=== PATIENT | male | born 1970 ===

== ENCOUNTER 2017-03-07 09:01 | Emergency (ER) | payer SELFPAY ==
[2017-03-07 09:26] VITALS: O2SAT 98
[2017-03-07 10:18] LABS: BASO % 0.4 % (0.0-2.0); EOS # 0.1 K/uL (0.0-0.7); EOS % 1.1 % (0.0-4.0); HEMATOCRIT 47.3 % (35.0-51.0); LYMPH # 2.4 K/uL (1.0-4.3); LYMPH % 27.5 % (20.0-40.0); MEAN CELL VOLUME 87.8 fl (80.0-94.0); MEAN CORPUSCULAR HEMOGLOBIN 30.4 pg (27.0-31.0); MEAN CORPUSCULAR HGB CONC 34.6 g/dL (33.0-37.0); MEAN PLATELET VOLUME 9.7 fl (7.2-11.7); MONO # 0.6 K/uL (0.0-0.8); MONO % 7.1 % (0.0-10.0); NEUT # 5.5 K/uL (1.8-7.0); NEUT % 63.9 % (50.0-75.0); NRBC % 0.1 % (0.0-0.0); RED CELL DISTRIBUTION WIDTH 12.9 % (11.5-14.5); WHITE BLOOD COUNT 8.6 K/uL (4.8-10.8)
[2017-03-07 10:30] LABS: ALB/GLOB RATIO 1.5 (1.0-2.1); ALKALINE PHOSPHATASE 58 U/L (38-126); ALT/SGPT 42 U/L (21-72); AST/SGOT 24 U/L (17-59); BILIRUBIN,TOTAL 0.7 mg/dl (0.2-1.3); BLOOD UREA NITROGEN 17 mg/dl (9-20); CALCIUM 9.8 mg/dL (8.4-10.2); CARBON DIOXIDE 31 mmol/L (22-30); CHLORIDE 101 mmol/L (98-107); GFR AFRICAN-AMERICAN > 60; GLUCOSE,RANDOM 98 mg/dL (75-110); POTASSIUM 4.1 MMOL/L (3.6-5.0); SODIUM 143 mmol/l (132-148); TOTAL PROTEIN 7.8 G/DL (6.3-8.2); URIC ACID 7.6 mg/Dl (3.5-8.5)
--- NOTE | 2017-03-07 10:33 | RAD ---
PROCEDURE: Left foot radiographs dated 03/07/2017 HISTORY: left foot pain/swelling COMPARISON: None. FINDINGS: BONES: No evidence of acute displaced fracture nor dislocation. The osseous structures appear intact. There are no obvious cortical destructive changes. Small posterior and plantar calcaneal enthesophytes are present. JOINTS: Joint spaces preserved. No significant osteoarthritis. SOFT TISSUES: Mild diffuse soft tissue swelling nonspecific. OTHER FINDINGS: None. IMPRESSION: No acute fractures. Mild diffuse nonspecific soft tissue swelling.
--- NOTE | 2017-03-07 11:49 | ED PDOC ---
Lower Extremity Pain/Injury Time Seen by Provider: 03/07/17 09:12 Chief Complaint (Nursing): Lower Extremity Problem/Injury History Per: Patient (states that he noticed swelling and pain of the left foot yesterday morning. The pain and swelling worsened over the past 24 hours. He has taken ibuprofen 800mg without relief. He denies injuries, fall, or overexertion) History/Exam Limitations: no limitations Past Medical History Reviewed: Historical Data, Nursing Documentation, Vital Signs Vital Signs: Last Vital Signs Temp 97 F L 03/07/17 09:18 Pulse 64 03/07/17 09:18 Resp 20 03/07/17 09:18 BP 135/88 03/07/17 09:18 Pulse Ox 98 03/07/17 09:18 - Medical History PMH: No Chronic Diseases, HTN - Family History Family History: States: No Known Family Hx - Home Medications Home Medications: Ambulatory Orders Medication Instructions Recorded Naproxen [Naprosyn] 500 mg PO BID PRN #20 tablet 03/07/17 - Allergies Allergies/Adverse Reactions: Allergies Allergy/AdvReac Type Severity Reaction Status Date / Time No Known Allergies Allergy Verified 03/07/17 09:17 Review of Systems ROS Statement: Except As Marked, All Systems Reviewed And Found Negative Constitutional: Negative for: Fever, Chills Skin: Negative for: Rash, Lesions, Bruising Physical Exam - Reviewed Nursing Documentation Reviewed: Yes Vital Signs Reviewed: Yes - Physical Exam Appears: Positive for: Well, Non-toxic, No Acute Distress Head Exam: Positive for: ATRAUMATIC, NORMAL INSPECTION, NORMOCEPHALIC Skin: Positive for: Normal Color, Warm, DRY Eye Exam: Positive for: EOMI, Normal appearance, PERRL ENT: Positive for: Normal ENT Inspection Neck: Positive for: Normal, Painless ROM Cardiovascular/Chest: Positive for: Regular Rate, Rhythm Respiratory: Positive for: CNT, Normal Breath Sounds Gastrointestinal/Abdominal: Positive for: Normal Exam, Bowel Sounds, Soft Back: Positive for: Normal Inspection Extremity: Positive for: Tenderness (of the dorsum of the left foot. pulses intact but faint.) Neurologic/Psych: Positive for: Alert, Oriented - Laboratory Results Result Diagrams: 03/07/17 09:57 03/07/17 09:57 - ECG O2 Sat by Pulse Oximetry: 98 Disposition - Clinical Impression Clinical Impression: Soft tissue swelling - Patient ED Disposition Is Patient to be Admitted: No Doctor Will See Patient In The: Office Counseled Patient/Family Regarding: Diagnosis, Need For Followup, Rx Given - Disposition Referrals: [facility] [Outside] [facility] [Outside] Disposition: Routine/Home Disposition Time: 11:51 Condition: STABLE Prescriptions: Naproxen [Naprosyn] 500 mg PO BID PRN #20 tablet PRN Reason: Pain, Moderate (4-7) Instructions: Muscle Strain (ED) Forms: [facility] (Lao) - POA Present On Arrival: None
[2017-03-07 12:10] VITALS: BP 126/78; PULSE 75; RESP 16; TEMP 97.9
== END 2017-03-07 12:05 | disposition home or self-care (01) ==
LOC: H.ER 09:01
DX: M79.89 Other specified soft tissue disorders (principal)

== ENCOUNTER 2018-03-05 13:58 | Emergency (ER) | payer OTHER ==
[2018-03-05 15:01] LABS: BASO % 0.6 % (0.0-2.0); EOS # 0.1 K/uL (0.0-0.7); EOS % 2.2 % (0.0-4.0); HEMOGLOBIN 15.5 g/dL (12.0-18.0); LYMPH # 2.1 K/uL (1.0-4.3); LYMPH % 36.6 % (20.0-40.0); MEAN CELL VOLUME 87.5 fl (80.0-94.0); MEAN CORPUSCULAR HEMOGLOBIN 30.6 pg (27.0-31.0); MEAN CORPUSCULAR HGB CONC 34.9 g/dL (33.0-37.0); MEAN PLATELET VOLUME 9.7 fl (7.2-11.7); MONO # 0.4 K/uL (0.0-0.8); MONO % 6.4 % (0.0-10.0); NEUT # 3.1 K/uL (1.8-7.0); NEUT % 54.2 % (50.0-75.0); NRBC % 0.2 % (0.0-0.0); RBC 5.06 Mil/uL (4.40-5.90); RED CELL DISTRIBUTION WIDTH 13.1 % (11.5-14.5); WHITE BLOOD COUNT 5.6 K/uL (4.8-10.8)
[2018-03-05 15:08] LABS: URINE BILIRUBIN NEGATIVE (NEGATIVE); URINE BLOOD NEGATIVE (NEGATIVE); URINE CLARITY CLEAR (Clear); URINE COLOR YELLOW (YELLOW); URINE GLUCOSE (UA) NEG (Normal); URINE LEUKOCYTE ESTERASE NEG Leu/uL (Negative); URINE PROTEIN NEGATIVE (NEGATIVE); URINE UROBILINOGEN 0.2-1.0 mg/dL (0.2-1.0)
[2018-03-05 15:20] LABS: BLOOD UREA NITROGEN 18 mg/dl (9-20); CALCIUM 9.6 mg/dL (8.4-10.2); GFR AFRICAN-AMERICAN > 60; GFR NON-AFRICAN AMERICAN > 60
--- NOTE | 2018-03-05 15:27 | ED PDOC ---
HPI: Abdomen Time Seen by Provider: 03/05/18 14:26 Chief Complaint (Nursing): Abdominal Pain History Per: Patient History/Exam Limitations: no limitations Onset/Duration Of Symptoms: Other (2 weeks) Outside of [place] travel?: No Current Symptoms Are (Timing): Still Present Severity: Moderate Pain Scale Rating Of: 4 Location Of Pain/Discomfort: LLQ Quality Of Discomfort: Dull Associated Symptoms: denies: Fever, Chills, Nausea, Vomiting, Diarrhea, Back Pain, Chest Pain, Constipation, Urinary Symptoms Exacerbating Factors: None Alleviating Factors: None Last Bowel Movement: Today Additional History Per: Patient Additional Complaint(s): Patient presenting with Left scrotal pain and LLQ pain for 2 weeks. Pain is intermittent. Denies any swelling. Pain is moderate. Denies any dysuria, hematuria, hematospermia, back pain, fever. PMD none Past Medical History Reviewed: Historical Data, Nursing Documentation, Vital Signs Vital Signs: Last Vital Signs Temp 98.4 F 03/05/18 14:16 Pulse 64 03/05/18 14:16 Resp 18 03/05/18 14:16 BP 146/87 03/05/18 14:16 Pulse Ox 99 03/05/18 17:28 - Medical History PMH: HTN Denies: Chronic Kidney Disease - Surgical History Surgical History: No Surg Hx - Family History Family History: States: No Known Family Hx - Immunization History Hx Tetanus Toxoid Vaccination: No Hx Influenza Vaccination: No Hx Pneumococcal Vaccination: No - Home Medications Home Medications: Ambulatory Orders Medication Instructions Recorded Atenolol 50 mg PO 11/17/13 Losartan 50 mg PO 11/17/13 amLODIPine 5 mg PO 11/17/13 Naproxen [Naprosyn] 500 mg PO BID PRN #20 tablet 03/07/17 - Allergies Allergies/Adverse Reactions: Allergies Allergy/AdvReac Type Severity Reaction Status Date / Time No Known Allergies Allergy Verified 03/05/18 14:15 Review of Systems ROS Statement: Except As Marked, All Systems Reviewed And Found Negative Physical Exam - Reviewed Nursing Documentation Reviewed: Yes Vital Signs Reviewed: Yes - Physical Exam Appears: Positive for: Well, Non-toxic, No Acute Distress Head Exam: Positive for: ATRAUMATIC, NORMAL INSPECTION Skin: Positive for: Normal Color, Warm, Dry Eye Exam: Positive for: EOMI ENT: Positive for: Normal ENT Inspection Neck: Positive for: Normal, Painless ROM Cardiovascular/Chest: Positive for: Regular Rate, Rhythm Respiratory: Positive for: Normal Breath Sounds. Negative for: Respiratory Distress Gastrointestinal/Abdominal: Positive for: Soft, Tenderness (LLQ ) Male Genital Exam: Positive for: normal genitalia, no hernia, epididymal tenderness. Negative for: erythema, inguinal tenderness, testicular tenderness (R), testicular tenderness (L) Back: Negative for: L CVA Tenderness, R CVA Tenderness Extremity: Positive for: Normal ROM Neurologic/Psych: Positive for: Alert, Oriented - Laboratory Results Result Diagrams: 03/05/18 14:57 03/05/18 14:57 - ECG O2 Sat by Pulse Oximetry: 99 (RA) Pulse Ox Interpretation: Normal - Progress ED Course And Treament: Time: 1600 --Labs: no significant clinical abnormality. --Urine: no active infection. Time: 1645 --US testes FINDINGS: RIGHT TESTICLE: Measures 3.9 x 1.7 x 2.5 cm. Normal echotexture and flow. Trace right hydrocele. No varicocele. RIGHT EPIDIDYMIS: Epididymal head measures 0.8 x 0.5 x 0.9 cm. Unremarkable appearance with no cyst or solid mass related. Unremarkable color Doppler blood flow pattern. LEFT TESTICLE: Measures 4.4 x 2.0 x 3.2 cm. Normal echotexture and flow. Moderate, mildly complex left hydrocele with a few septations. No varicocele. LEFT EPIDIDYMIS: Epididymal head measures 1.4 x 1.1 x 1.0 cm. There is a small complex cyst at the left epididymal neck measuring 0.9 x 0.7 x 0.8 cm. OTHER FINDINGS: None. IMPRESSION: 1. No cyst testicular mass or torsion bilaterally. 2. 0.9 cm complex left epididymal neck cyst. Bilateral at the myomas unremarkable. 3. Moderate left hydrocele, mildly complex. Time: 1708 --CT ABD/pelvis FINDINGS: LOWER THORAX: Cardiomegaly is identified. No pleural or pericardial effusion. Limited linear atelectasis at the lingula base. LIVER: Diffusely diminished attenuation is seen throughout the liver indicating diffuse fatty infiltration. GALLBLADDER AND BILE DUCTS: Gallbladder is completely contracted. No evidence to suggest dilatation of the biliary tree both intra and extrahepatic. PANCREAS: Unremarkable. No gross lesion or ductal dilatation. SPLEEN: Unremarkable. ADRENALS: Unremarkable. No mass. KIDNEYS AND URETERS: The left kidney appears unremarkable. There is an exophytic cyst related to the lower pole left kidney posteriorly measuring 3.9 x 4.2 cm. No obstructive uropathy bilaterally or discrete solid parenchymal mass either. No significant perinephric reaction. Symmetric cortical medullary enhancement identified bilaterally. VASCULATURE: Unremarkable. No aortic aneurysm. BOWEL: Stomach is distended with retained food and fluid, hence complete gallbladder contraction as noted above. There is no bowel obstruction identified and moderate fecal loading is seen throughout the proximal and mid large-bowel segments. Scattered colonic diverticulosis appreciated mildly, concentrated at the sigmoid segment without acute changes. APPENDIX: Normal appendix. PERITONEUM: No fluid collection or free intrarenal gas identified however ground-glass changes are identified which shotty central mesenteric lymph nodes potentially reflecting mesenteric adenitis. LYMPH NODES: No enlarged lymph nodes. BLADDER: Unremarkable. REPRODUCTIVE: Unremarkable. BONES: No acute fracture. OTHER FINDINGS: None. IMPRESSION: 1. Abnormal mesenteric changes may indicate mesenteric adenitis. 2. Hepatic steatosis. 3. Simple cyst exophytic off the lower pole right kidney. Bilateral kidneys otherwise unremarkable. 4. Infrequent scattered colonic diverticulosis without diverticulitis pattern. Time: 1713 --Upon provider re-evaluation, patient is medically stable, reports improvement and requires no further treatment in the ED at this time. Patient will be discharged home. Counseling was provided and all questions were answered regarding diagnosis. Advised to follow up with urologist, in which, patient states that he will make an appointment with his own doctor. There is agreement to discharge plan. Return if symptoms persist or worsen. Clinical Impression: Abdominal pain; Testicular pain, left Scribe Attestation: Documented by Radha Somers, acting as a scribe for Jean Valero MD. Provider Scribe Attestation: All medical record entries made by the Scribe were at my direction and personally dictated by me. I have reviewed the chart and agree that the record accurately reflects my personal performance of the history, physical exam, medical decision making, and the department course for this patient. I have also personally directed, reviewed, and agree with the discharge instructions and disposition. Medical Decision Making Medical Decision Making: Impression: Left scrotal pain and LLQ pain Differential includes: epidydimitis, orchitis, testicular mass, varicocele, hernia, diverticulitis Plan: CBC BMP CT abd with IV contrast Scrotal doppler reassess Disposition - Clinical Impression Clinical Impression: Abdominal pain, Testicular pain, left, Epididymal cyst, Diverticulosis, Renal cyst, Mesenteric adenitis - Patient ED Disposition Is Patient to be Admitted: No Doctor Will See Patient In The: Office Counseled Patient/Family Regarding: Studies Performed, Diagnosis, Need For Followup - Disposition Referrals: Silvino Crocker MD [Medical Doctor] - [facility] [Outside] Disposition: Routine/Home Disposition Time: 17:14 Condition: GOOD Additional Instructions: Take motrin for pain. Follow up with your urologist in 4-5 days. You have following findings epidydimal cyst, hydrocele, diverticulosis, and left renal cyst. Instructions: Diverticulosis, Hydrocele Print Language: SINHALA
[2018-03-05] MEDS ORDERED: Iohexol 300 100 ML IJ ONE (15:41)
[2018-03-05] MEDS ORDERED: Sodium Chloride 0.9% 50 ML IV ONE (15:41)
--- NOTE | 2018-03-05 16:46 | US ---
Date of service: 03/05/2018 HISTORY: left testicular pain cyst? for 2 weeks TECHNIQUE: Realtime sonography through the scrotum with color and doppler flow. COMPARISON: None Available. FINDINGS: RIGHT TESTICLE: Measures 3.9 x 1.7 x 2.5 cm. Normal echotexture and flow. Trace right hydrocele. No varicocele. RIGHT EPIDIDYMIS: Epididymal head measures 0.8 x 0.5 x 0.9 cm. Unremarkable appearance with no cyst or solid mass related. Unremarkable color Doppler blood flow pattern. LEFT TESTICLE: Measures 4.4 x 2.0 x 3.2 cm. Normal echotexture and flow. Moderate, mildly complex left hydrocele with a few septations. No varicocele. LEFT EPIDIDYMIS: Epididymal head measures 1.4 x 1.1 x 1.0 cm. There is a small complex cyst at the left epididymal neck measuring 0.9 x 0.7 x 0.8 cm. OTHER FINDINGS: None. IMPRESSION: 1. No cyst testicular mass or torsion bilaterally. 2. 0.9 cm complex left epididymal neck cyst. Bilateral at the myomas unremarkable. 3. Moderate left hydrocele, mildly complex.
--- NOTE | 2018-03-05 17:10 | CT ---
Date of service: 03/05/2018 PROCEDURE: CT Abdomen and Pelvis with contrast HISTORY: LLQ pain and left scrotal pain COMPARISON: None. TECHNIQUE: Following the intravenous administration of iodinated contrast material, a CT examination of the abdomen and pelvis performed from the domes of the diaphragms to the symphysis pubis with reformatted datasets provided in axial, sagittal and coronal planes. Oral contrast was not administered as per referring physician request. Contrast dose: Omnipaque 300, 95 cc Radiation dose: Total exam DLP = 846.70 mGy-cm. This CT exam was performed using one or more of the following dose reduction techniques: Automated exposure control, adjustment of the mA and/or kV according to patient size, and/or use of iterative reconstruction technique. FINDINGS: LOWER THORAX: Cardiomegaly is identified. No pleural or pericardial effusion. Limited linear atelectasis at the lingula base. LIVER: Diffusely diminished attenuation is seen throughout the liver indicating diffuse fatty infiltration. GALLBLADDER AND BILE DUCTS: Gallbladder is completely contracted. No evidence to suggest dilatation of the biliary tree both intra and extrahepatic. PANCREAS: Unremarkable. No gross lesion or ductal dilatation. SPLEEN: Unremarkable. ADRENALS: Unremarkable. No mass. KIDNEYS AND URETERS: The left kidney appears unremarkable. There is an exophytic cyst related to the lower pole left kidney posteriorly measuring 3.9 x 4.2 cm. No obstructive uropathy bilaterally or discrete solid parenchymal mass either. No significant perinephric reaction. Symmetric cortical medullary enhancement identified bilaterally. VASCULATURE: Unremarkable. No aortic aneurysm. BOWEL: Stomach is distended with retained food and fluid, hence complete gallbladder contraction as noted above. There is no bowel obstruction identified and moderate fecal loading is seen throughout the proximal and mid large-bowel segments. Scattered colonic diverticulosis appreciated mildly, concentrated at the sigmoid segment without acute changes. APPENDIX: Normal appendix. PERITONEUM: No fluid collection or free intrarenal gas identified however ground-glass changes are identified which shotty central mesenteric lymph nodes potentially reflecting mesenteric adenitis. LYMPH NODES: No enlarged lymph nodes. BLADDER: Unremarkable. REPRODUCTIVE: Unremarkable. BONES: No acute fracture. OTHER FINDINGS: None. IMPRESSION: 1. Abnormal mesenteric changes may indicate mesenteric adenitis. 2. Hepatic steatosis. 3. Simple cyst exophytic off the lower pole right kidney. Bilateral kidneys otherwise unremarkable. 4. Infrequent scattered colonic diverticulosis without diverticulitis pattern.
[2018-03-05 18:17] VITALS: BP 128/82; PULSE 67; RESP 15; TEMP 98.2; O2SAT 100
== END 2018-03-05 18:17 | disposition home or self-care (01) ==
LOC: H.ER 13:58
DX: R10.9 Unspecified abdominal pain (principal); N50.3 Cyst of epididymis; N28.1 Cyst of kidney, acquired; K57.30 Diverticulosis of large intestine without perforation or abscess without bleeding; N43.3 Hydrocele, unspecified; I88.0 Nonspecific mesenteric lymphadenitis; I10 Essential (primary) hypertension; K76.0 Fatty (change of) liver, not elsewhere classified
CPT/HCPCS: 74177; 80048; 81003; 85025; 93975; 99283; Q9967